=== PATIENT | female | born 1960 | race Caucasian/White ===

== ENCOUNTER 2018-08-20 14:07 | Emergency (ER) | payer BC ==
--- NOTE | 2018-08-20 14:52 | EDM.PDOC ---
ED HPI GENERAL MEDICAL PROBLEM - General Chief Complaint: Back Pain or Injury Stated Complaint: L SIDE BACK PAIN/HURTS TO BREATHE Time Seen by Provider: 08/20/18 14:27 Source of Information: Reports: Patient History Limitations: Reports: No Limitations - History of Present Illness INITIAL COMMENTS - FREE TEXT/NARRATIVE: Patient is a 58-year-old female who presents to the ED complaining of left upper thoracic back pain. 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 Pain waxes and wane in intensity. She went to [facility] and states with returning she became slightly short of breath since she cannot take a deep breath due to worsening pain described a s sharp to that location. Pain was sharp in nature localized with no radiation. Pain at its peak with taking a deep breath or any type of movement was rated 8 out of 10. Currently is mild to moderate in nature. She denies any chest pain, no nausea vomiting, no radiation of pain into her arm or neck. No abdominal pain, no cough, no hemoptysis, no history of DVT or PE. She states she's had pain like this in the past. She attempted to get in with a chiropractor to be evaluated and be adjusted. She states in the past with being out of adjustment she has become short of breath. She denies any history of spontaneous pneumothorax. She does not have any significant past medical history. No first-degree relatives with heart disease. She is currently on no medications. Surgical history left hip replacement. She does not smoke, use alcohol, or any recreational drugs. Left Upper Back Pain Score (Numeric/FACES): 8 - Related Data Allergies Allergy/AdvReac Type Severity Reaction Status Date / Time No Known Allergies Allergy Verified 08/20/18 14:18 Home Meds: Home Meds Cyclobenzaprine [Flexeril] 10 mg PO TID PRN #12 08/20/18 [Rx] Past Medical History HEENT History: Reports: Impaired Vision Other HEENT History: wears corrective lenses Musculoskeletal History: Reports: Back Pain, Chronic, Other (See Below) Other Musculoskeletal History: bone spurs in left hip, awaiting hip replacement Social & Family History - Tobacco Use Smoking Status *Q: Never Smoker - Caffeine Use Caffeine Use: Reports: Coffee - Recreational Drug Use Recreational Drug Use: No ED ROS GENERAL - Review of Systems Review Of Systems: ROS reveals no pertinent complaints other than HPI. ED EXAM, UPPER BACK/NECK PAIN - Physical Exam Exam: See Below Exam Limited By: No Limitations General Appearance: Alert, WD/WN, No Apparent Distress Ears Exam: Hearing Grossly Normal Nose Exam: Normal Inspection, Normal Mucousa Throat/Mouth Exam: Normal Inspection, Normal Oropharynx, Normal Voice, No Airway Compromise Head Exam: Atraumatic, Normocephalic Neck Exam: Non-Tender, Full Range of Motion, Normal Alignment, Normal Inspection Nexus Criteria: No: Posterior, Midline Cervical Tenderness Cardiovascular/Respiratory: Regular Rate, Rhythm, No M/R/G, Normal Peripheral Pulses, No JVD, Normal Breath Sounds GI/Abdominal: Normal Bowel Sounds, Soft, Non-Tender, No Organomegaly, No Distention Back Exam: Normal Inspection, Paraspinal Tenderness (left scapula), Other (Mild pain with palpation to the medial and superior border of the scapula. ). 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 Patient appears to be uncomfortable while lying in bed. She' s been attempting to stretch the affected area with moving left to right. It is localized to the left scapula along the medial and superior border. Pain is sharp in nature with no radiation. She has not expressed any shortness of breath or chest pain at this time. She has no pain to her belly. No pain to her left arm or neck. She suspects she may have pulled a muscle while cleaning. D&D: Strained muscle, spontaneous pneumothorax, ascending aortic disection, and cardiac with atypical symptoms. I have offered to obtain labs, cxr, and ekg. Patient refuses and testing. Suspects muscle related. I suspect this is correct due to hpi and physical findings. I will discharge patient home with prescription for flexeril. She has a appt with chiropractor at 1500 hrs. Return precautions have been discussed with the patient. She had no further questions and agrees with plan. Departure - Departure Time of Disposition: 14:52 Disposition: Home, Self-Care 01 Condition: Good Clinical Impression: Strain of muscle at thorax level - Discharge Information Prescriptions: Cyclobenzaprine [Flexeril] 10 mg PO TID PRN #12 PRN Reason: Spasms Instructions: Back Pain, Adult, [id number], Muscle Strain Referrals: PCP,None [Primary Care Provider] - Forms: ED Department Discharge Additional Instructions: Take the Flexeril as prescribed. May utilize heat and ice with gentle massage as needed throughout the course of the day. Do not drive while taking the Flexeril. May utilize Tylenol and ibuprofen as well for discomfort. If you experience any new or worsening symptoms please return back to the ED. I suspect cause of discomfort is musculoskeletal in nature. It should subside over the next 1-2 weeks. Refrain from any activities that cause worsening discomfort.
== END 2018-08-20 15:14 | disposition home or self-care (01) ==
LOC: JD.ED 14:07
DX: S29.012A Strain of muscle and tendon of back wall of thorax, initial encounter (principal); X50.9XXA Other and unspecified overexertion or strenuous movements or postures, initial encounter
CPT/HCPCS: 99283